=== PATIENT | female | born 1980 | race African-American/Black ===

== ENCOUNTER 2018-07-08 09:10 | Emergency (ER) | payer OTHER ==
[~2018-07-08] VITALS: Ht 170.2 cm; Wt 120.9 kg
[2018-07-08 10:01] VITALS: BP 145/92
[2018-07-08] MEDS ORDERED: EPINEPHrine HCL 1 MG/1 ML AMP SC ONE (10:15)
[2018-07-08] MEDS ORDERED: methylPREDNISolone SOD SUCC 125 MG/2 ML VL IM ONE (10:15)
== END 2018-07-08 10:34 | disposition home or self-care (01) ==
LOC: ER 09:13
DX: T78.40XA Allergy, unspecified, initial encounter (principal); X58.XXXA Exposure to other specified factors, initial encounter
CPT/HCPCS: 96372; 99283; J0171; J2930

== ENCOUNTER 2018-07-20 17:05 | Emergency (ER) | payer OTHER ==
[~2018-07-20] VITALS: Ht 170.2 cm; Wt 117.9 kg
[2018-07-20 18:47] LABS: Basophils # (auto) 0.1 uL; Basophils % (auto) 0.7 % (0.0-2.0); Eosinophils # (auto) 0.1 uL; Eosinophils % (auto) 0.7 % (0.0-7.0); Hematocrit 43.3 % (36.0-46.0); Lymphocytes # (auto) 2.8 uL; Lymphocytes % (auto) 30.8 % (10.0-50.0); Mean Corpuscular Hemoglobin 28.2 pg (28.0-32.0); Mean Corpuscular Hgb Conc. 32.3 g/dL (32.0-36.0); Mean Corpuscular Volume 87.2 fL (80.0-100.0); Monocytes # (auto) 0.8 uL; Monocytes % (auto) 8.6 % (0.0-12.0); Neutrophils # (auto) 5.5 uL; Neutrophils % (auto) 59.2 % (37.0-80.0); Nucleated Red Blood Cells % 0.2 %; Platelet Count (auto) 297 10^3/uL (140-450); Red Blood Cells 4.97 10^6/uL (4.0-5.20); Red Cell Distribution Width 15.2 % (11.8-14.3); White Blood Cell 9.3 10^3/uL (4.4-10.8)
[2018-07-20 19:02] LABS: Urine Bacteria NONE SEEN /hpf (None Seen); Urine Blood 2+ /uL (Negative); Urine Specific Gravity 1.018 (1.001-1.035); Urine WBC 11 /hpf (0 - 5)
[2018-07-20 19:03] LABS: Albumin 3.5 g/dL (3.4-5.0); Anion Gap 4 (5-15); Blood Urea Nitrogen 9 mg/dL (7-18); Calcium 8.4 mg/dL (8.5-10.1); Carbon Dioxide 23 mmol/L (21-32); Chloride 111 mmol/L (98-107); Glucose 92 mg/dL (74-106); Potassium 3.9 mmol/L (3.5-5.1); Sodium 138 mmol/L (136-145)
[2018-07-20 19:08] LABS: Alanine Aminotransferase 27 U/L (13-56); Alkaline Phosphatase 91 U/L (45-117); Aspartate Aminotransferase 15 U/L (15-37); Bilirubin, Total 0.4 mg/dL (0.2-1.0); GFR African American > 60 mL/min; GFR Non-African American > 60 mL/min; Total Protein 7.5 g/dL (6.4-8.2)
[2018-07-20] MEDS ORDERED: HYDROcodone-ACET 10/325MG TAB PO ONE (19:45)
[2018-07-20 20:08] VITALS: BP 136/81
== END 2018-07-20 20:09 | disposition home or self-care (01) ==
LOC: ER 17:05
DX: N93.9 Abnormal uterine and vaginal bleeding, unspecified (principal); N39.0 Urinary tract infection, site not specified
CPT/HCPCS: 36415; 74176; 80053; 81001; 81025; 85025; 86850; 86900; 86901

== ENCOUNTER 2019-06-17 10:24 | Emergency (ER) | payer OTHER ==
[~2019-06-17] VITALS: Ht 170.2 cm; Wt 124.3 kg
[2019-06-17 10:43] VITALS: BP 150/97
[2019-06-17 11:16] LABS: Urine Bacteria NONE SEEN /hpf (None Seen); Urine Blood Negative /uL (Negative); Urine Specific Gravity 1.018 (1.001-1.035); Urine WBC 5 /hpf (0 - 5)
== END 2019-06-17 13:02 | disposition home or self-care (01) ==
LOC: ER 10:24
DX: J02.9 Acute pharyngitis, unspecified (principal)
CPT/HCPCS: 81001

== ENCOUNTER 2021-06-09 02:32 | Emergency (ER) | payer MEDICAID, OTHER ==
[~2021-06-09] VITALS: Ht 170.2 cm; Wt 113.4 kg
[2021-06-09] MEDS ORDERED: IPRATROPIUM BROM 0.5 MG/2.5ML INH SOL NEB ONE (02:45)
[2021-06-09] MEDS ORDERED: ALBUTEROL SULF 2.5 MG/0.5ML(0.5%) NEB SOLN NEB ONE (02:45)
[2021-06-09] MEDS ORDERED: guaiFENesin 200 MG/10 ML UD PO ONE (04:15)
[2021-06-09] MEDS ORDERED: methylPREDNISolone SOD SUCC 125 MG/2 ML VL IM ONE (05:45)
[2021-06-09 06:26] VITALS: BP 133/100
== END 2021-06-09 06:29 | disposition home or self-care (01) ==
LOC: ER 02:32
DX: J06.9 Acute upper respiratory infection, unspecified (principal); E66.9 Obesity, unspecified; Z68.39 Body mass index [BMI] 39.0-39.9, adult; J45.909 Unspecified asthma, uncomplicated; Z20.822 Contact with and (suspected) exposure to COVID-19
CPT/HCPCS: 36415; 87426; 96372; 99283; J2930; J7644